=== PATIENT | male | born 1975 | race Caucasian/White ===

== ENCOUNTER → 2022-01-02 | Day surgery (SDC) | payer OTHER ==
[~2022-01-02] VITALS: Ht 175.3 cm; Wt 88.0 kg
[~2022-01-02] MED LIST: TOPROL XL 25MG25 MG PO; VIAGRA100 MG PO
== END | disposition home or self-care (01) ==
LOC: FAS 07:04
DX: Z12.11 Encounter for screening for malignant neoplasm of colon (principal); D12.3 Benign neoplasm of transverse colon; D12.5 Benign neoplasm of sigmoid colon; K21.9 Gastro-esophageal reflux disease without esophagitis; F41.9 Anxiety disorder, unspecified; F32.A Depression, unspecified; Z88.1 Allergy status to other antibiotic agents
CPT/HCPCS: J2704; J7120